=== PATIENT | female | born 1990 | race Caucasian/White ===

== ENCOUNTER 2017-05-01 19:54 | Emergency (ER) | payer OTHER ==
[~2017-05-01] VITALS: Ht 170.2 cm; Wt 98.2 kg
--- NOTE | 2017-05-01 22:35 | PHYS DOC ---
General Chief Complaint: VAGINAL BLEEDING Stated Complaint: HEAVY VAGINAL BLEEDING,10 WKS Time Seen by MD: 20:59 Source: patient Exam Limitations: no limitations Problems: History of Present Illness Initial Comments Patient is a 27-year-old female who comes to the ED complaining of vaginal bleeding. Patient states that she is 10 weeks gestation 3 para 2 with no known risk factors. She states that she had a positive test at home and is trying to schedule with an stockroom inventory clerk. Approximately 6 PM today she developed sudden onset low back cramping, when she went to the bathroom she states that she passed some blood and had blood in her undergarments. She denies any pelvic pain and denies any unilateral adnexal pain or cramping. No chest pain or shortness of breath no leg swelling no dizziness headache dyspnea on exertion or palpitations. She denies any coagulopathy. She is to drink alcohol occasionally and smokes cigarettes until she found out she was . Timing/Duration: other Severity: moderate Modifying Factors: improves with other Associated Symptoms: other Allergies: Coded Allergies: No Known Drug Allergies (Unverified , 05/01/17) Past Medical History Medical History: no pertinent history Surgical History: noncontributory Para: 2 : 3 LMP (Females 10-50): (10 weeks) Social History Smoker: cigarettes Alcohol: occasionally Drugs: none Review of Systems Constitutional: denies chills, denies diaphoresis, denies fever, denies malaise Respiratory: denies cough, denies shortness of breath Cardiovascular: denies chest pain, denies palpitations Gastrointestinal: see HPI Genitourinary: see HPI Musculoskeletal: see HPI Psychiatric/Neurological: denies headache, denies numbness, denies paresthesia Hematologic/Lymphatic: denies blood clots, denies easy bleeding, denies easy bruising Physical Exam General Appearance: no apparent distress Eyes: bilateral eye normal inspection, bilateral eye PERRL, bilateral eye EOMI Ear, Nose, Throat: hearing grossly normal, normal ENT inspection Neck: non-tender, full range of motion, supple Respiratory: normal breath sounds, no respiratory distress Cardiovascular: normal peripheral pulses, regular rate, rhythm Gastrointestinal: non tender, soft Back: no CVA tenderness, no vertebral tenderness Extremities: no pedal edema, no calf tenderness Neurologic/Psychiatric: maxillofacial pathology II-XII nml as tested, no motor/sensory deficits, alert, oriented x 3 Orders, Labs, Meds Serum hCG 4263 Patient deferred pelvic exam. I discussed ultrasound evaluation, patient states that she has spoken with her physical science technician and has ultrasound scheduled for tomorrow morning. She was initially requesting discharge when I evaluated her however I did convince her to stay long enough to obtain a serum hCG is a felt that would be pertinent information for any future medical providers. The patient was agreeable. I rechecked her after labs returned she had no further bleeding throughout her ED course. I discussed signs and symptoms to monitor as well as indications for urgent return to the department. She continues to refuse ultrasound evaluation here and I encouraged her to follow-up with her physical science technician tomorrow. Her questions were answered to her satisfaction and she expressed agreement and understanding of the treatment plan. Departure Time of Disposition: 22:34 Disposition: 01 HOME, SELF-CARE Diagnosis: threatened miscarriage Condition: STABLE Patient Instructions: Threatened Miscarriage, [id number] Additional Instructions: Please review the patient education materials given by ED staff. As discussed your serum hCG was 4263. [id number] Tylenol and heating pad usage as needed for symptom control. Follow-up with your physical science technician tomorrow for ultrasound as scheduled. Return to ED with new or changing symptoms. SHERRIE JAUREGUI DO May 01, 2017 22:34
[2017-05-01 22:40] VITALS: BP 149/96
== END 2017-05-01 22:40 | disposition home or self-care (01) ==
LOC: ER 19:54
DX: O20.0 Threatened abortion (principal); O99.331 Smoking (tobacco) complicating pregnancy, first trimester; Z3A.10 10 weeks gestation of pregnancy
CPT/HCPCS: 36415; 84702; 99283